=== PATIENT | female | born 1950 ===

== ENCOUNTER 2018-02-17 07:55 | Day surgery (SDC) | payer MEDICARE ==
[2018-02-17] MEDS ORDERED: Propofol 10 mg/ml Inj (20 ML) ONE (10:04)
[2018-02-17] MEDS ORDERED: Midazolam 2 MG/2 ML VIAL ONE (10:05)
[2018-02-17 10:54] VITALS: TEMP 97; O2SAT 100
[2018-02-17 11:43] VITALS: BP 134/69; PULSE 65; RESP 12
== END 2018-02-17 11:40 | disposition home or self-care (01) ==
LOC: C.ENDO 07:55
PROVIDERS: ATTEND Internal Medicine Gastroenterology
DX: K63.5 Polyp of colon (principal); K64.1 Second degree hemorrhoids; I10 Essential (primary) hypertension; Z86.010 Personal history of colon polyps; Z80.0 Family history of malignant neoplasm of digestive organs
CPT/HCPCS: 45380; 88305; J2250; J2704